=== PATIENT | female | born 1960 | race American Indian/Alaskan Native ===

== ENCOUNTER 2022-05-30 20:06 | Emergency (ER) | payer OTHER ==
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
[2022-05-30] MEDS ORDERED: IBUPROFEN 600 MG TAB PO ONE (23:56)
[2022-05-30] MEDS ORDERED: HYDROcodone/ACETAMINOPHEN 5-325 MG TAB PO ONE (23:56)
[2022-05-30] MEDS ORDERED: CYCLOBENZAPRINE 10 MG TAB PO ONE (23:56)
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
[2022-05-31 01:14] VITALS: BP 130/68
== END 2022-05-31 01:18 | disposition home or self-care (01) ==
LOC: ED 20:06
DX: S60.211A Contusion of right wrist, initial encounter (principal); S63.501A Unspecified sprain of right wrist, initial encounter; I10 Essential (primary) hypertension; V89.2XXA Person injured in unspecified motor-vehicle accident, traffic, initial encounter; Y93.89 Activity, other specified; Y92.89 Other specified places as the place of occurrence of the external cause; Y99.8 Other external cause status
CPT/HCPCS: 99283